=== PATIENT | male | born 1955 | race Caucasian/White ===

== ENCOUNTER 2016-11-03 10:21 | Inpatient (IN) | payer MEDICAID ==
[~2016-11-03] VITALS: Ht 167.6 cm; Wt 68.2 kg
[~2016-11-03 10:21] MED LIST: RISP2 PO; VITAD1000 PO
[2016-11-03] MEDS ORDERED: ZOLPIDEM TARTRATE 10 MG TABLET PO PRN (12:30)
[2016-11-03 12:35] VITALS: BP 119/68
[2016-11-03] MEDS ORDERED: MIRT15 PO (12:55)
[2016-11-03] MEDS ORDERED: RISP1 PO (12:55)
[2016-11-03] MEDS ORDERED: INFLUENZA VIRUS VACCINE QVS 2016-17 (3YR+)/PF 60 MCG/0.5 ML SYRINGE IM ONE (13:00)
[2016-11-03] MEDS: LORazepam 1 MG TABLET PO PRN (13:12)
[2016-11-03 16:02] VITALS: BP 109/69
[2016-11-03] MEDS: MIRTAZAPINE 30 MG TABLET PO SCH (19:58)
[2016-11-03] MEDS ORDERED: RisperiDONE 1 MG TABLET PO SCH (21:00)
[2016-11-04] MEDS: LORazepam 1 MG TABLET PO PRN ×3 (05:48→17:01)
[2016-11-04 07:11] VITALS: BP 107/64
[2016-11-04 08:12] VITALS: BP 109/64
[2016-11-04] MEDS ORDERED: ALBUTEROL SULFATE HFA 90 MCG/PUFF 8 GM INHALER IH PRN (08:15)
[2016-11-04] MEDS ORDERED: LOPERAMIDE HCL 2 MG CAPSULE PO PRN (08:15)
[2016-11-04] MEDS ORDERED: PETROLATUM,WHITE 71 GM JELLY TP PRN (08:15)
[2016-11-04] MEDS ORDERED: ONDANSETRON HCL 4 MG TABLET PO PRN (08:15)
[2016-11-04] MEDS ORDERED: BENZOCAINE/MENTHOL LOZENGE MM PRN (08:15)
[2016-11-04] MEDS ORDERED: MAG HYDROX/AL HYDROX/SIMETH ES 30 ML SUSPENSION UDCUP PO PRN (08:15)
[2016-11-04] MEDS ORDERED: MAGNESIUM HYDROXIDE SUSPENSION 30 ML UDCUP PO PRN (08:15)
[2016-11-04] MEDS ORDERED: CloNIDine HCL 0.1 MG TABLET PO PRN (08:15)
[2016-11-04] MEDS ORDERED: ACETAMINOPHEN 325 MG TABLET PO PRN (08:15)
[2016-11-04] MEDS ORDERED: BACITRACIN 28.4 GM OINTMENT TP PRN (08:15)
[2016-11-04 08:34] LABS: BASOPHILS % (AUTO) 0.4 % (0.0-2.0); EOSINOPHILS % (AUTO) 5.6 % (1.0-6.0); HEMATOCRIT 40.8 % (41-53); LYMPHOCYTES # (AUTO) 2.1 K/uL (1.0-4.8); LYMPHOCYTES % (AUTO) 37.3 % (22.0-44.0); MEAN CORPUSCULAR HEMOGLOBIN 27.7 pg (26.0-34.0); MEAN CORPUSCULAR HGB CONC 31.9 G/dL (31.0-37.0); MEAN CORPUSCULAR VOLUME 87 fL (80-100); MONOCYTES # (AUTO) 0.5 K/uL (0.1-1.0); MONOCYTES % (AUTO) 8.4 % (2.0-9.0); NEUTROPHILS # (AUTO) 2.7 K/uL (1.8-7.7); NEUTROPHILS % (AUTO) 48.3 % (40.0-70.0); PLATELET COUNT (AUTO) 339 K/uL (150-450); RED BLOOD CELL COUNT(AUTO) 4.71 MIL/uL (4.50-5.90); WHITE BLOOD COUNT (AUTO) 5.7 K/uL (4.5-11.0)
[2016-11-04 08:56] LABS: ALANINE AMINOTRANSFERASE 9 U/L (12-78); ALBUMIN 2.9 g/dL (3.4-5.0); ANION GAP 8 mmol/L (8-16); ASPARTATE AMINOTRANSFERASE 13 U/L (15-37); BILIRUBIN,TOTAL 0.3 mg/dL (0.1-1.0); CARBON DIOXIDE 28 mmol/L (22-29); CHLORIDE 106 mmol/L (98-107); CREATININE 0.74 mg/dL (0.60-1.30); GLOMERULAR FILTR. RATE CALC > 60 mL/min (>60); SODIUM SERUM 142 mmol/L (136-145); TOTAL PROTEIN, SERUM 6.4 g/dL (6.4-8.2); UREA NITROGEN, BLOOD 19 mg/dL (7-18)
[2016-11-04 09:41] LABS: APPEARANCE,URINE TURBID (CLEAR); GLUCOSE, URINE (UA) NEGATIVE (NEGATIVE); KETONES,URINE 15 mg/dL (NEGATIVE); LEUKOCYTE ESTERASE ,URINE NEGATIVE (NEGATIVE); OCCULT BLOOD,URINE NEGATIVE (NEGATIVE); PROTEIN,URINE NEGATIVE (NEGATIVE)
[2016-11-04] MEDS: CHOLECALCIFEROL (VIT D3) 1,000 UNITS TABLET PO SCH (09:43)
[2016-11-04] MEDS: NICOTINE 7 MG/24 HOUR PATCH TD SCH (09:43)
[2016-11-04 09:45] LABS: ADD UA MICROSCOPIC YES
[2016-11-04 09:57] LABS: RBC,URINE None Seen /HPF (0-2); SQUAMOUS EPITHELIAL CELL,UR Few /LPF (None Seen); WBC,URINE None Seen /HPF (0-5)
[2016-11-04] MEDS: HYDROCORTISONE 2.5% 30 GM OINTMENT TP SCH ×2 (15:57→17:01)
[2016-11-04 16:00] VITALS: BP 116/66
[2016-11-04] MEDS: HALOPERIDOL 5 MG TABLET PO PRN (17:01)
[2016-11-04] MEDS: MIRTAZAPINE 30 MG TABLET PO SCH (20:55)
[2016-11-04] MEDS: RisperiDONE 2 MG TABLET PO SCH (20:55)
[2016-11-05] MEDS: LORazepam 1 MG TABLET PO PRN ×2 (06:54→12:02)
[2016-11-05 08:26] VITALS: BP 104/66
[2016-11-05] MEDS: HALOPERIDOL 5 MG TABLET PO PRN (08:35)
[2016-11-05] MEDS: NICOTINE 7 MG/24 HOUR PATCH TD SCH (08:35)
[2016-11-05] MEDS: CHOLECALCIFEROL (VIT D3) 1,000 UNITS TABLET PO SCH (08:35)
[2016-11-05] MEDS: HYDROCORTISONE 2.5% 30 GM OINTMENT TP SCH ×2 (08:36→17:27)
[2016-11-05 16:00] VITALS: BP 109/69
[2016-11-05] MEDS: RisperiDONE 2 MG TABLET PO SCH (20:46)
[2016-11-05] MEDS: MIRTAZAPINE 30 MG TABLET PO SCH (20:46)
[2016-11-06] MEDS: LORazepam 1 MG TABLET PO PRN ×2 (06:54→14:35)
[2016-11-06 07:01] VITALS: BP 106/77
[2016-11-06 08:30] VITALS: BP 98/61
[2016-11-06] MEDS: CHOLECALCIFEROL (VIT D3) 1,000 UNITS TABLET PO SCH (09:16)
[2016-11-06] MEDS: HYDROCORTISONE 2.5% 30 GM OINTMENT TP SCH ×2 (09:16→16:42)
[2016-11-06] MEDS: NICOTINE 7 MG/24 HOUR PATCH TD SCH (09:16)
[2016-11-06 14:33] VITALS: BP 103/64
[2016-11-06 16:00] VITALS: BP 115/73
[2016-11-06] MEDS: MIRTAZAPINE 30 MG TABLET PO SCH (19:59)
[2016-11-06] MEDS: RisperiDONE 2 MG TABLET PO SCH (19:59)
[2016-11-07 06:52] VITALS: BP 102/68
[2016-11-07] MEDS: LORazepam 1 MG TABLET PO PRN ×2 (07:00→16:36)
[2016-11-07 08:30] VITALS: BP 93/65
[2016-11-07] MEDS: NICOTINE 7 MG/24 HOUR PATCH TD SCH (08:42)
[2016-11-07] MEDS: CHOLECALCIFEROL (VIT D3) 1,000 UNITS TABLET PO SCH (08:42)
[2016-11-07] MEDS: HYDROCORTISONE 2.5% 30 GM OINTMENT TP SCH ×2 (08:42→17:09)
[2016-11-07 14:13] LABS: HEPATITIS Bs ANTIGEN SCREEN P Negative (Negative); HEPATITIS C AB SCREEN 0.1 s/co ratio (0.0-0.9)
[2016-11-07 16:09] VITALS: BP_SYST 111; BP_DIAS 65; BP_DIAS 71
[2016-11-07] MEDS: HALOPERIDOL 5 MG TABLET PO PRN (16:36)
[2016-11-07] MEDS: RisperiDONE 2 MG TABLET PO SCH (20:26)
[2016-11-07] MEDS: MIRTAZAPINE 30 MG TABLET PO SCH (20:27)
[2016-11-08 06:10] VITALS: BP 115/73
[2016-11-08] MEDS: LORazepam 1 MG TABLET PO PRN ×3 (06:13→16:29)
[2016-11-08 08:41] VITALS: BP 95/68
[2016-11-08] MEDS: NICOTINE 7 MG/24 HOUR PATCH TD SCH (09:11)
[2016-11-08] MEDS: CHOLECALCIFEROL (VIT D3) 1,000 UNITS TABLET PO SCH (09:11)
[2016-11-08] MEDS: HYDROCORTISONE 2.5% 30 GM OINTMENT TP SCH ×2 (09:11→16:29)
[2016-11-08 12:18] VITALS: BP 108/70
[2016-11-08 16:00] VITALS: BP 115/70
[2016-11-08] MEDS: RisperiDONE 2 MG TABLET PO SCH (20:43)
[2016-11-08] MEDS: MIRTAZAPINE 30 MG TABLET PO SCH (20:43)
[2016-11-09 05:04] VITALS: BP 110/65
[2016-11-09] MEDS: LORazepam 1 MG TABLET PO PRN ×3 (06:11→16:10)
[2016-11-09 08:06] VITALS: BP 104/65
[2016-11-09] MEDS: CHOLECALCIFEROL (VIT D3) 1,000 UNITS TABLET PO SCH (08:49)
[2016-11-09] MEDS: NICOTINE 7 MG/24 HOUR PATCH TD SCH (08:50)
[2016-11-09] MEDS: HYDROCORTISONE 2.5% 30 GM OINTMENT TP SCH ×2 (08:50→16:11)
[2016-11-09] MEDS: BusPIRone HCL 5 MG TABLET PO SCH ×2 (13:24→16:10)
[2016-11-09 16:01] VITALS: BP 120/78
[2016-11-09] MEDS: IBUPROFEN 600 MG TABLET PO PRN (16:32)
[2016-11-09] MEDS: RisperiDONE 2 MG TABLET PO SCH (20:22)
[2016-11-09] MEDS: MIRTAZAPINE 30 MG TABLET PO SCH (20:22)
[2016-11-10] MEDS: LORazepam 1 MG TABLET PO PRN ×2 (03:59→16:26)
[2016-11-10 06:43] VITALS: BP 100/60
[2016-11-10 08:30] VITALS: BP 109/60
[2016-11-10] MEDS: BusPIRone HCL 5 MG TABLET PO SCH ×3 (09:02→16:12)
[2016-11-10] MEDS: NICOTINE 7 MG/24 HOUR PATCH TD SCH (09:02)
[2016-11-10] MEDS: CHOLECALCIFEROL (VIT D3) 1,000 UNITS TABLET PO SCH (09:02)
[2016-11-10] MEDS: HALOPERIDOL 5 MG TABLET PO PRN (10:34)
[2016-11-10 16:00] VITALS: BP 126/72
[2016-11-10] MEDS: IBUPROFEN 600 MG TABLET PO PRN (16:54)
[2016-11-10] MEDS: RisperiDONE 2 MG TABLET PO SCH (20:05)
[2016-11-10] MEDS: MIRTAZAPINE 30 MG TABLET PO SCH (20:05)
[2016-11-11 06:32] VITALS: BP 111/70
[2016-11-11] MEDS: LORazepam 1 MG TABLET PO PRN ×2 (06:35→16:27)
[2016-11-11 08:02] VITALS: BP 109/60
[2016-11-11] MEDS: HALOPERIDOL 5 MG TABLET PO PRN (09:43)
[2016-11-11] MEDS: NICOTINE 7 MG/24 HOUR PATCH TD SCH (09:43)
[2016-11-11] MEDS: BusPIRone HCL 5 MG TABLET PO SCH ×3 (09:43→16:16)
[2016-11-11] MEDS: CHOLECALCIFEROL (VIT D3) 1,000 UNITS TABLET PO SCH (09:43)
[2016-11-11 16:00] VITALS: BP 114/71
[2016-11-11] MEDS: MIRTAZAPINE 30 MG TABLET PO SCH (20:04)
[2016-11-11] MEDS: RisperiDONE 2 MG TABLET PO SCH (20:04)
[2016-11-12 05:51] VITALS: BP 103/60
[2016-11-12] MEDS: LORazepam 1 MG TABLET PO PRN (07:35)
[2016-11-12 08:21] VITALS: BP 114/74
[2016-11-12] MEDS: CHOLECALCIFEROL (VIT D3) 1,000 UNITS TABLET PO SCH (08:31)
[2016-11-12] MEDS: NICOTINE 7 MG/24 HOUR PATCH TD SCH (08:32)
[2016-11-12] MEDS: BusPIRone HCL 5 MG TABLET PO SCH (08:32)
[2016-11-12] MEDS ORDERED: BUSP5TAB20 PO (08:50)
[2016-11-12] MEDS ORDERED: MIRT30 PO (08:50)
[2016-11-12] MEDS ORDERED: RISP2 PO (08:50)
[2016-11-12] MEDS ORDERED: VITAD1000 PO (09:34)
== END 2016-11-12 11:50 | disposition home or self-care (01) | DRG 750 ==
LOC: B3A 12:24 → EDSTATUS 12:47 → B2S 11-11 10:23
PROC: 3E0234Z Introduction of Serum, Toxoid and Vaccine into Muscle, Percutaneous Approach (ICD-10-PCS; principal; 2016-11-03)
DX: F25.1 Schizoaffective disorder, depressive type (principal); R45.851 Suicidal ideations; E55.9 Vitamin D deficiency, unspecified; J44.9 Chronic obstructive pulmonary disease, unspecified; F17.210 Nicotine dependence, cigarettes, uncomplicated; D50.9 Iron deficiency anemia, unspecified; I95.1 Orthostatic hypotension; M19.90 Unspecified osteoarthritis, unspecified site; G47.00 Insomnia, unspecified; S61.214A Laceration without foreign body of right ring finger without damage to nail, initial encounter; X58.XXXA Exposure to other specified factors, initial encounter; Y93.89 Activity, other specified; Y92.89 Other specified places as the place of occurrence of the external cause; Y99.8 Other external cause status; Z79.899 Other long term (current) drug therapy; Z59.0 Homelessness; Z91.5 Personal history of self-harm; Z98.890 Other specified postprocedural states; Z23 Encounter for immunization
CPT/HCPCS: 80074; 87086; 90471

== ENCOUNTER 2017-05-28 15:33 | Inpatient (IN) | payer MEDICAID ==
[~2017-05-28] VITALS: Ht 167.6 cm; Wt 70.8 kg
[~2017-05-28 15:33] MED LIST changes: +BUSP5TAB20 PO; +MIRT30 PO
[2017-05-28 19:45] VITALS: BP 115/66
[2017-05-28] MEDS ORDERED: PNEUMOCOCCAL VACCINE POLYVALENT 0.5 ML VIAL [PPSV23] IM ONE (20:30)
[2017-05-28] MEDS: LORazepam 1 MG TABLET PO PRN (21:31)
[2017-05-29 00:35] VITALS: BP 110/74
[2017-05-29] MEDS: ZOLPIDEM TARTRATE 10 MG TABLET PO PRN ×2 (00:53→20:39)
[2017-05-29] MEDS: LORazepam 1 MG TABLET PO PRN ×3 (06:38→16:25)
[2017-05-29] MEDS ORDERED: MAG HYDROX/AL HYDROX/SIMETH ES 30 ML SUSPENSION UDCUP PO PRN (07:45)
[2017-05-29] MEDS ORDERED: LOPERAMIDE HCL 2 MG CAPSULE PO PRN (07:45)
[2017-05-29] MEDS ORDERED: BENZOCAINE/MENTHOL LOZENGE MM PRN (07:45)
[2017-05-29] MEDS ORDERED: PETROLATUM,WHITE 71 GM JELLY TP PRN (07:45)
[2017-05-29] MEDS ORDERED: ALBUTEROL SULFATE HFA 90 MCG/PUFF 8 GM INHALER IH PRN (07:45)
[2017-05-29] MEDS ORDERED: CloNIDine HCL 0.1 MG TABLET PO PRN (07:45)
[2017-05-29] MEDS ORDERED: ACETAMINOPHEN 325 MG TABLET PO PRN (07:45)
[2017-05-29] MEDS ORDERED: ONDANSETRON HCL 4 MG TABLET PO PRN (07:45)
[2017-05-29] MEDS ORDERED: IBUPROFEN 600 MG TABLET PO PRN (07:45)
[2017-05-29] MEDS ORDERED: MAGNESIUM HYDROXIDE SUSPENSION 30 ML UDCUP PO PRN (07:45)
[2017-05-29] MEDS ORDERED: BACITRACIN 28.4 GM OINTMENT TP PRN (07:45)
[2017-05-29] MEDS: HALOPERIDOL 5 MG TABLET PO PRN ×2 (08:22→13:37)
[2017-05-29 08:23] VITALS: BP 125/80
[2017-05-29] MEDS: TraMADol HCL 50 MG TABLET PO PRN (08:23)
[2017-05-29] MEDS: CHOLECALCIFEROL (VIT D3) 1,000 UNITS TABLET PO SCH (08:23)
[2017-05-29 08:28] LABS: BASOPHILS % (AUTO) 0.3 % (0.0-2.0); EOSINOPHILS % (AUTO) 6.4 % (1.0-6.0); HEMATOCRIT 36.5 % (41-53); HEMOGLOBIN 12.2 g/dL (13.5-17.5); LYMPHOCYTES % (AUTO) 30.9 % (22.0-44.0); MEAN CORPUSCULAR HEMOGLOBIN 29.5 pg (26.0-34.0); MEAN CORPUSCULAR HGB CONC 33.3 G/dL (31.0-37.0); MEAN CORPUSCULAR VOLUME 89 fL (80-100); MONOCYTES # (AUTO) 0.6 K/uL (0.1-1.0); MONOCYTES % (AUTO) 9.8 % (2.0-9.0); NEUTROPHILS # (AUTO) 3.3 K/uL (1.8-7.7); NEUTROPHILS % (AUTO) 52.6 % (40.0-70.0); PLATELET COUNT (AUTO) 225 K/uL (150-450); RED BLOOD CELL COUNT(AUTO) 4.12 MIL/uL (4.50-5.90); RED CELL DISTRIBUTION WIDTH 16.2 % (11.5-14.5); WHITE BLOOD COUNT (AUTO) 6.3 K/uL (4.5-11.0)
[2017-05-29 08:50] LABS: ALANINE AMINOTRANSFERASE 13 U/L (12-78); ALBUMIN 3.1 g/dL (3.4-5.0); ANION GAP 6 mmol/L (8-16); ASPARTATE AMINOTRANSFERASE 19 U/L (15-37); BILIRUBIN,TOTAL 0.2 mg/dL (0.1-1.0); CALCIUM, TOTAL 8.7 mg/dL (8.8-10.5); CARBON DIOXIDE 30 mmol/L (22-29); CHLORIDE 106 mmol/L (98-107); CHOL/HDL RATIO 4.7 (4.2-7.3); CREATININE 0.97 mg/dL (0.60-1.30); GLOMERULAR FILTR. RATE CALC > 60 mL/min (>60); POTASSIUM 3.9 mmol/L (3.5-5.1); SODIUM SERUM 142 mmol/L (136-145); THYROID STIMULATING HORMONE 2.26 uIU/mL (0.36-3.74); TOTAL PROTEIN, SERUM 6.5 g/dL (6.4-8.2); UREA NITROGEN, BLOOD 20 mg/dL (7-18)
[2017-05-29 08:52] LABS: HEMOGLOBIN A1C 6.4 % (4.5-6.2)
[2017-05-29 08:57] VITALS: BP 125/80
[2017-05-29] MEDS: RisperiDONE 2 MG TABLET PO SCH (16:25)
[2017-05-29 16:47] VITALS: BP 125/70
[2017-05-30 00:11] VITALS: BP 107/66
[2017-05-30] MEDS: TraMADol HCL 50 MG TABLET PO PRN (04:10)
[2017-05-30] MEDS: LORazepam 1 MG TABLET PO PRN ×3 (04:14→16:29)
[2017-05-30 08:57] VITALS: BP 99/70
[2017-05-30] MEDS: CHOLECALCIFEROL (VIT D3) 1,000 UNITS TABLET PO SCH (09:13)
[2017-05-30] MEDS: RisperiDONE 2 MG TABLET PO SCH ×2 (09:13→16:15)
[2017-05-30 14:27] VITALS: BP 101/70
[2017-05-30 17:38] VITALS: BP 126/75
[2017-05-30] MEDS: ZOLPIDEM TARTRATE 10 MG TABLET PO PRN (21:05)
[2017-05-31 00:49] VITALS: BP 122/79
[2017-05-31] MEDS: TraMADol HCL 50 MG TABLET PO PRN ×2 (00:52→08:34)
[2017-05-31] MEDS: LORazepam 1 MG TABLET PO PRN ×2 (06:16→16:01)
[2017-05-31 08:32] VITALS: BP 117/80
[2017-05-31] MEDS: HALOPERIDOL 5 MG TABLET PO PRN (08:34)
[2017-05-31] MEDS: CHOLECALCIFEROL (VIT D3) 1,000 UNITS TABLET PO SCH (08:34)
[2017-05-31] MEDS: RisperiDONE 2 MG TABLET PO SCH ×2 (08:34→16:01)
[2017-05-31 09:34] VITALS: BP 136/76
[2017-05-31 16:10] VITALS: BP 112/68
[2017-05-31 16:40] VITALS: BP 125/77
[2017-06-01 04:50] VITALS: BP 112/75
[2017-06-01] MEDS: LORazepam 1 MG TABLET PO PRN ×2 (04:54→16:48)
[2017-06-01] MEDS: CHOLECALCIFEROL (VIT D3) 1,000 UNITS TABLET PO SCH (08:19)
[2017-06-01] MEDS: RisperiDONE 2 MG TABLET PO SCH ×2 (08:19→16:48)
[2017-06-01 09:08] VITALS: BP 124/71
[2017-06-01 12:20] VITALS: BP 118/72
[2017-06-01] MEDS: TraMADol HCL 50 MG TABLET PO PRN (12:23)
[2017-06-01 13:20] VITALS: BP 115/69
[2017-06-01 16:15] VITALS: BP 109/77
[2017-06-01] MEDS: HALOPERIDOL 5 MG TABLET PO PRN (16:48)
[2017-06-02 05:38] VITALS: BP 110/80
[2017-06-02] MEDS: LORazepam 1 MG TABLET PO PRN ×3 (05:40→17:58)
[2017-06-02 08:50] VITALS: BP 117/64
[2017-06-02] MEDS: RisperiDONE 2 MG TABLET PO SCH (09:01)
[2017-06-02] MEDS: CHOLECALCIFEROL (VIT D3) 1,000 UNITS TABLET PO SCH (09:01)
[2017-06-02] MEDS: TraMADol HCL 50 MG TABLET PO PRN (09:13)
[2017-06-02 16:52] VITALS: BP 125/70
[2017-06-03 00:11] VITALS: BP 115/68
[2017-06-03 05:35] VITALS: BP 110/72
[2017-06-03] MEDS: LORazepam 1 MG TABLET PO PRN (05:37)
[2017-06-03] MEDS ORDERED: FERROUS SULFATE 325 MG EC TABLET PO SCH (07:00)
[2017-06-03] MEDS: TraMADol HCL 50 MG TABLET PO PRN (07:01)
[2017-06-03 08:18] LABS: HEMATOCRIT 36.9 % (41-53); HEMOGLOBIN 12.4 g/dL (13.5-17.5); MEAN CORPUSCULAR HEMOGLOBIN 29.7 pg (26.0-34.0); MEAN CORPUSCULAR HGB CONC 33.6 G/dL (31.0-37.0); MEAN CORPUSCULAR VOLUME 88 fL (80-100); PLATELET COUNT (AUTO) 254 K/uL (150-450); RED BLOOD CELL COUNT(AUTO) 4.18 MIL/uL (4.50-5.90); RED CELL DISTRIBUTION WIDTH 16.4 % (11.5-14.5); WHITE BLOOD COUNT (AUTO) 7.5 K/uL (4.5-11.0)
[2017-06-03] MEDS: CHOLECALCIFEROL (VIT D3) 1,000 UNITS TABLET PO SCH (08:27)
[2017-06-03 08:31] LABS: ANION GAP 4 mmol/L (8-16); CALCIUM, TOTAL 8.5 mg/dL (8.8-10.5); CARBON DIOXIDE 29 mmol/L (22-29); CHLORIDE 104 mmol/L (98-107); CREATININE 0.86 mg/dL (0.60-1.30); GLOMERULAR FILTR. RATE CALC > 60 mL/min (>60); PHOSPHORUS 3.5 mg/dL (2.5-4.9); POTASSIUM 4.4 mmol/L (3.5-5.1); SODIUM SERUM 137 mmol/L (136-145); UREA NITROGEN, BLOOD 22 mg/dL (7-18)
[2017-06-03 09:00] VITALS: BP 126/61
[2017-06-03] MEDS ORDERED: RISP3TAB13 PO (10:45)
[2017-06-03] MEDS ORDERED: FERR-89 PO (10:45)
[2017-06-03 11:05] LABS: EOSINOPHILS % (MANUAL) 4 % (1-6); LYMPHOCYTES % (MANUAL) 30 % (22-44); TOTAL CELLS COUNTED 100
[2017-06-03] MEDS ORDERED: RisperiDONE 3 MG TABLET PO SCH (17:00)
== END 2017-06-03 12:15 | disposition left against medical advice (07) | DRG 750 ==
LOC: B2S 19:09
PROVIDERS: ADMIT Psychiatry & Neurology Psychiatry; ATTEND Psychiatry & Neurology Psychiatry
DX: F25.0 Schizoaffective disorder, bipolar type (principal); E83.51 Hypocalcemia; F19.20 Other psychoactive substance dependence, uncomplicated; F17.200 Nicotine dependence, unspecified, uncomplicated; F22 Delusional disorders; F41.9 Anxiety disorder, unspecified; D64.9 Anemia, unspecified; G47.00 Insomnia, unspecified; Z53.21 Procedure and treatment not carried out due to patient leaving prior to being seen by health care provider; G89.29 Other chronic pain; J44.9 Chronic obstructive pulmonary disease, unspecified; M19.90 Unspecified osteoarthritis, unspecified site; M54.9 Dorsalgia, unspecified; Z59.0 Homelessness; Z28.21 Immunization not carried out because of patient refusal; Z71.6 Tobacco abuse counseling; Z79.899 Other long term (current) drug therapy
CPT/HCPCS: 80307; 83036; 83735; 84100; 84439; 84443; 85007; 87081; J3535

== ENCOUNTER 2018-03-26 13:00 | Inpatient (IN) | payer MEDICAID ==
[~2018-03-26] VITALS: Ht 167.6 cm; Wt 74.8 kg
[~2018-03-26 13:00] MED LIST changes: -BUSP5TAB20 PO; +FERR-89 PO; -MIRT30 PO; -RISP2 PO; +RISP3TAB13 PO
[2018-03-26 13:34] VITALS: BP 121/82
[2018-03-26] MEDS ORDERED: ZOLPIDEM TARTRATE 10 MG TABLET PO PRN (14:15)
[2018-03-26 14:45] VITALS: BP 127/81
[2018-03-26] MEDS: HALOPERIDOL 5 MG TABLET PO PRN (16:24)
[2018-03-26] MEDS: LORazepam 2 MG TABLET PO PRN (16:24)
[2018-03-26 16:26] VITALS: BP 134/75
[2018-03-27 04:01] VITALS: BP 122/70
[2018-03-27] MEDS: LORazepam 2 MG TABLET PO PRN ×2 (06:44→16:42)
[2018-03-27] MEDS: HALOPERIDOL 5 MG TABLET PO PRN ×2 (06:44→16:42)
[2018-03-27 07:32] LABS: BASOPHILS % (AUTO) 0.3 % (0.0-2.0); EOSINOPHILS % (AUTO) 3.7 % (1.0-6.0); HEMATOCRIT 41.4 % (41-53); HEMOGLOBIN 13.7 g/dL (13.5-17.5); MEAN CORPUSCULAR HGB CONC 33.2 G/dL (31.0-37.0); MEAN CORPUSCULAR VOLUME 87 fL (80-100); MONOCYTES # (AUTO) 0.4 K/uL (0.1-1.0); MONOCYTES % (AUTO) 7.5 % (2.0-9.0); NEUTROPHILS # (AUTO) 3.2 K/uL (1.8-7.7); NEUTROPHILS % (AUTO) 54.5 % (40.0-70.0); PLATELET COUNT (AUTO) 186 K/uL (150-450); RED BLOOD CELL COUNT(AUTO) 4.74 MIL/uL (4.50-5.90); RED CELL DISTRIBUTION WIDTH 14.6 % (11.5-14.5)
[2018-03-27 08:03] LABS: ALANINE AMINOTRANSFERASE 11 U/L (12-78); ALBUMIN 3.1 g/dL (3.4-5.0); ALKALINE PHOSPHATASE 52 U/L (46-116); ANION GAP 4 mmol/L (8-16); ASPARTATE AMINOTRANSFERASE 17 U/L (15-37); BILIRUBIN,TOTAL 0.4 mg/dL (0.1-1.0); CALCIUM, TOTAL 8.4 mg/dL (8.8-10.5); CARBON DIOXIDE 30 mmol/L (22-29); CHLORIDE 107 mmol/L (98-107); CHOL/HDL RATIO 3.3 (4.2-7.3); CHOLESTEROL 144 mg/dL (131-200); CREATININE 0.88 mg/dL (0.60-1.30); FREE T4 (FREE THYROXINE) 0.84 ng/dL (0.76-1.46); GLOMERULAR FILTR. RATE CALC > 60 mL/min (>60); GLUCOSE,RANDOM 101 mg/dL (70-110); HDL CHOLESTEROL 43 mg/dL (40-60); LDL CHOL (CALC.) 89 mg/dL (0-130); POTASSIUM 4.2 mmol/L (3.5-5.1); SODIUM SERUM 141 mmol/L (136-145); TOTAL PROTEIN, SERUM 6.2 g/dL (6.4-8.2); TRIGLYCERIDES 62 mg/dL (15-150); UREA NITROGEN, BLOOD 19 mg/dL (7-18)
[2018-03-27 08:04] VITALS: BP 108/62
[2018-03-27] MEDS ORDERED: LOPERAMIDE HCL 2 MG CAPSULE PO PRN (12:30)
[2018-03-27] MEDS ORDERED: BACITRACIN 28.4 GM OINTMENT TP PRN (12:30)
[2018-03-27] MEDS ORDERED: IBUPROFEN 600 MG TABLET PO PRN (12:30)
[2018-03-27] MEDS ORDERED: ONDANSETRON HCL 4 MG TABLET PO PRN (12:30)
[2018-03-27] MEDS ORDERED: ALBUTEROL SULFATE HFA 90 MCG/PUFF 8 GM INHALER IH PRN (12:30)
[2018-03-27] MEDS ORDERED: PETROLATUM,WHITE 71 GM JELLY TP PRN (12:30)
[2018-03-27] MEDS ORDERED: MAGNESIUM HYDROXIDE SUSPENSION 30 ML UDCUP PO PRN (12:30)
[2018-03-27] MEDS ORDERED: ACETAMINOPHEN 325 MG TABLET PO PRN (12:30)
[2018-03-27] MEDS ORDERED: MAG HYDROX/AL HYDROX/SIMETH ES 30 ML SUSPENSION UDCUP PO PRN (12:30)
[2018-03-27] MEDS ORDERED: CloNIDine HCL 0.1 MG TABLET PO PRN (12:30)
[2018-03-27] MEDS ORDERED: BENZOCAINE/MENTHOL LOZENGE MM PRN (12:30)
[2018-03-27 16:04] VITALS: BP 111/69
[2018-03-27] MEDS: RisperiDONE 3 MG TABLET PO SCH (20:47)
[2018-03-27] MEDS ORDERED: RisperiDONE 2 MG TABLET PO SCH (21:00)
[2018-03-28 03:07] VITALS: BP 118/72
[2018-03-28 08:02] VITALS: BP 105/64
[2018-03-28] MEDS: CHOLECALCIFEROL (VIT D3) 1,000 UNITS TABLET PO SCH (08:20)
[2018-03-28] MEDS: RisperiDONE 3 MG TABLET PO SCH ×2 (08:20→20:43)
[2018-03-28] MEDS: LORazepam 2 MG TABLET PO PRN ×2 (08:21→14:28)
[2018-03-28 14:42] VITALS: BP 95/60
[2018-03-28 16:03] VITALS: BP 111/64
[2018-03-29 00:06] VITALS: BP 102/61
[2018-03-29] MEDS: LORazepam 2 MG TABLET PO PRN ×3 (06:39→18:01)
[2018-03-29 08:04] VITALS: BP 110/65
[2018-03-29] MEDS: CHOLECALCIFEROL (VIT D3) 1,000 UNITS TABLET PO SCH (08:24)
[2018-03-29] MEDS: RisperiDONE 3 MG TABLET PO SCH ×2 (08:24→20:17)
[2018-03-29 16:26] VITALS: BP 130/70
[2018-03-29] MEDS: HALOPERIDOL 5 MG TABLET PO PRN (16:36)
[2018-03-30 00:32] VITALS: BP 104/66
[2018-03-30] MEDS: LORazepam 2 MG TABLET PO PRN (06:58)
[2018-03-30 08:02] VITALS: BP 106/62
[2018-03-30] MEDS: CHOLECALCIFEROL (VIT D3) 1,000 UNITS TABLET PO SCH (08:23)
[2018-03-30] MEDS: RisperiDONE 3 MG TABLET PO SCH (08:23)
[2018-03-30] MEDS ORDERED: RISP3 PO ×2 (11:42→13:13)
[2018-03-30 16:03] VITALS: BP 102/65
== END 2018-03-30 15:00 | disposition home or self-care (01) | DRG 750 ==
LOC: B3A 16:00
DX: F25.1 Schizoaffective disorder, depressive type (principal); Z59.0 Homelessness; R45.851 Suicidal ideations; F15.90 Other stimulant use, unspecified, uncomplicated; F41.9 Anxiety disorder, unspecified; M19.90 Unspecified osteoarthritis, unspecified site; K21.9 Gastro-esophageal reflux disease without esophagitis; J44.9 Chronic obstructive pulmonary disease, unspecified; G47.00 Insomnia, unspecified; E55.9 Vitamin D deficiency, unspecified; F17.200 Nicotine dependence, unspecified, uncomplicated; Z79.899 Other long term (current) drug therapy
CPT/HCPCS: 82306; 84436; 84439

== ENCOUNTER 2019-12-20 23:11 | Inpatient (IN) | payer MEDICARE, MEDICAID ==
[~2019-12-20] VITALS: Ht 165.1 cm; Wt 97.1 kg
[~2019-12-20 23:11] MED LIST changes: +CHOL100018 PO; -FERR-89 PO; +RISP3 PO; -RISP3TAB13 PO; -VITAD1000 PO
[2019-12-20 23:40] VITALS: BP 112/76
[2019-12-21] MEDS ORDERED: ZOLPIDEM TARTRATE 10 MG TABLET PO PRN (00:30)
[2019-12-21] MEDS ORDERED: HALOPERIDOL 5 MG TABLET PO PRN (00:30)
[2019-12-21] MEDS: LORazepam 2 MG TABLET PO PRN ×3 (00:45→20:13)
[2019-12-21 01:23] VITALS: BP 107/73
[2019-12-21 08:43] VITALS: BP 116/79
[2019-12-21] MEDS ORDERED: ALBUTEROL SULFATE HFA 90 MCG/PUFF 8 GM INHALER IH PRN (09:00)
[2019-12-21] MEDS ORDERED: PETROLATUM,WHITE 28 GM JELLY TP PRN (09:00)
[2019-12-21] MEDS ORDERED: MAG HYDROX/AL HYDROX/SIMETH ES 30 ML SUSPENSION UDCUP PO PRN (09:00)
[2019-12-21] MEDS ORDERED: CloNIDine HCL 0.1 MG TABLET PO PRN (09:00)
[2019-12-21] MEDS ORDERED: ONDANSETRON HCL 4 MG TABLET PO PRN (09:00)
[2019-12-21] MEDS ORDERED: BENZOCAINE/MENTHOL LOZENGE MM PRN (09:00)
[2019-12-21] MEDS ORDERED: BACITRACIN 28.4 GM OINTMENT TP PRN (09:00)
[2019-12-21] MEDS ORDERED: LOPERAMIDE HCL 2 MG CAPSULE PO PRN (09:00)
[2019-12-21] MEDS ORDERED: MAGNESIUM HYDROXIDE SUSPENSION 30 ML UDCUP PO PRN (09:00)
[2019-12-21] MEDS: DOCUSATE SODIUM 100 MG CAPSULE PO SCH (09:17)
[2019-12-21] MEDS: OMEPRAZOLE 20 MG CAPSULE PO SCH (09:17)
[2019-12-21] MEDS: ACETAMINOPHEN 325 MG TABLET PO PRN (09:17)
[2019-12-21] MEDS ORDERED: MECLIZINE HCL 25 MG TABLET PO PRN (10:15)
[2019-12-21 12:30] VITALS: BP 115/67
[2019-12-21] MEDS: LOSARTAN POTASSIUM 50 MG TABLET PO SCH (12:31)
[2019-12-21] MEDS: ESCITALOPRAM OXALATE 10 MG TABLET PO SCH (14:23)
[2019-12-21 16:08] VITALS: BP 109/79
[2019-12-21] MEDS: IBUPROFEN 600 MG TABLET PO PRN (17:52)
[2019-12-21] MEDS: OLANZapine 5 MG TABLET PO SCH (20:13)
[2019-12-22 06:24] VITALS: BP 119/82
[2019-12-22] MEDS: OMEPRAZOLE 20 MG CAPSULE PO SCH (08:08)
[2019-12-22] MEDS: DOCUSATE SODIUM 100 MG CAPSULE PO SCH (08:08)
[2019-12-22] MEDS: LOSARTAN POTASSIUM 50 MG TABLET PO SCH (08:08)
[2019-12-22] MEDS: ESCITALOPRAM OXALATE 10 MG TABLET PO SCH (08:08)
[2019-12-22 08:09] VITALS: BP 115/79
[2019-12-22] MEDS: ACETAMINOPHEN 325 MG TABLET PO PRN ×3 (08:09→18:33)
[2019-12-22 08:45] LABS: BASOPHILS % (AUTO) 0.2 % (0.0-2.0); EOSINOPHILS % (AUTO) 6.1 % (1.0-6.0); HEMATOCRIT 41.3 % (41-53); HEMOGLOBIN 13.8 g/dL (13.5-17.5); LYMPHOCYTES # (AUTO) 1.9 K/uL (1.0-4.8); LYMPHOCYTES % (AUTO) 33.6 % (22.0-44.0); MEAN CORPUSCULAR HEMOGLOBIN 29.3 pg (26.0-34.0); MEAN CORPUSCULAR HGB CONC 33.3 G/dL (31.0-37.0); MEAN CORPUSCULAR VOLUME 88 fL (80-100); MONOCYTES # (AUTO) 0.6 K/uL (0.1-1.0); NEUTROPHILS # (AUTO) 2.8 K/uL (1.8-7.7); NEUTROPHILS % (AUTO) 49.1 % (40.0-70.0); PLATELET COUNT (AUTO) 211 K/uL (150-450); RED CELL DISTRIBUTION WIDTH 15.1 % (11.5-14.5)
[2019-12-22 09:23] LABS: ALANINE AMINOTRANSFERASE 18 U/L (12-78); ALBUMIN 3.1 g/dL (3.4-5.0); ALKALINE PHOSPHATASE 50 U/L (46-116); ANION GAP 8 mmol/L (8-16); ASPARTATE AMINOTRANSFERASE 23 U/L (15-37); BILIRUBIN,TOTAL 0.2 mg/dL (0.1-1.0); CARBON DIOXIDE 26 mmol/L (22-29); CHLORIDE 107 mmol/L (98-107); CHOL/HDL RATIO 5.8 (4.2-7.3); CHOLESTEROL 187 mg/dL (131-200); CREATININE 0.81 mg/dL (0.60-1.30); GLOMERULAR FILTR. RATE CALC > 60 mL/min (>60); GLUCOSE,RANDOM 96 mg/dL (70-110); HDL CHOLESTEROL 32 mg/dL (40-60); LDL CHOL (CALC.) 133 mg/dL (0-130); POTASSIUM 4.1 mmol/L (3.5-5.1); SODIUM SERUM 141 mmol/L (136-145); THYROID STIMULATING HORMONE 1.86 uIU/mL (0.36-3.74); TOTAL PROTEIN, SERUM 6.5 g/dL (6.4-8.2); TRIGLYCERIDES 110 mg/dL (15-150); UREA NITROGEN, BLOOD 18 mg/dL (7-18)
[2019-12-22] MEDS: LORazepam 2 MG TABLET PO PRN ×2 (09:29→20:15)
[2019-12-22 17:27] VITALS: BP 134/69
[2019-12-22] MEDS: OLANZapine 5 MG TABLET PO SCH (20:04)
[2019-12-23 01:23] VITALS: BP 104/62
[2019-12-23] MEDS: IBUPROFEN 600 MG TABLET PO PRN (06:32)
[2019-12-23 08:01] VITALS: BP 110/72
[2019-12-23] MEDS: LOSARTAN POTASSIUM 50 MG TABLET PO SCH (08:33)
[2019-12-23] MEDS: OMEPRAZOLE 20 MG CAPSULE PO SCH (08:33)
[2019-12-23] MEDS: DOCUSATE SODIUM 100 MG CAPSULE PO SCH (08:33)
[2019-12-23] MEDS: ESCITALOPRAM OXALATE 10 MG TABLET PO SCH (08:33)
[2019-12-23] MEDS ORDERED: ESCI10TA PO (08:59)
[2019-12-23] MEDS ORDERED: OLAN5TAB2 PO (08:59)
[2019-12-23] MEDS ORDERED: LOSA50TA37 PO (08:59)
== END 2019-12-23 11:40 | disposition home or self-care (01) | DRG 750 ==
LOC: B2S 12-21 00:29
PROVIDERS: ADMIT Psychiatry & Neurology Psychiatry; ATTEND Psychiatry & Neurology Psychiatry
DX: F25.9 Schizoaffective disorder, unspecified (principal); R45.851 Suicidal ideations; J44.9 Chronic obstructive pulmonary disease, unspecified; E55.9 Vitamin D deficiency, unspecified; F17.200 Nicotine dependence, unspecified, uncomplicated; F41.9 Anxiety disorder, unspecified; G47.00 Insomnia, unspecified; M19.90 Unspecified osteoarthritis, unspecified site; K21.9 Gastro-esophageal reflux disease without esophagitis
CPT/HCPCS: 83036; 84436; 84443; 86592

== ENCOUNTER 2022-05-03 22:19 | Emergency (ER) | payer MEDICARE, OTHER ==
[~2022-05-03] VITALS: Ht 165.1 cm; Wt 100.6 kg
[~2022-05-03 22:19] MED LIST changes: -CHOL100018 PO; +ESCI-8 PO; +LOSA-382 PO; +OLAN5TAB52 PO; -RISP3 PO
[2022-05-03] MEDS ORDERED: LOSA-381 PO (22:49)
[2022-05-03] MEDS ORDERED: PROP10TA73 PO (22:49)
[2022-05-03] MEDS ORDERED: LORA-999 PO (22:49)
[2022-05-03 23:22] LABS: BASOPHILS % (AUTO) 0.2 % (0.0-2.0); HEMATOCRIT 35.2 % (41-53); HEMOGLOBIN 11.5 g/dL (13.5-17.5); LYMPHOCYTES # (AUTO) 1.6 K/uL (1.0-4.8); LYMPHOCYTES % (AUTO) 28.3 % (22.0-44.0); MEAN CORPUSCULAR HEMOGLOBIN 29.1 pg (26.0-34.0); MEAN CORPUSCULAR HGB CONC 32.6 G/dL (31.0-37.0); MEAN CORPUSCULAR VOLUME 89 fL (80-100); MONOCYTES # (AUTO) 0.5 K/uL (0.1-1.0); MONOCYTES % (AUTO) 8.2 % (2.0-9.0); NEUTROPHILS # (AUTO) 3.1 K/uL (1.8-7.7); NEUTROPHILS % (AUTO) 55.3 % (40.0-70.0); PLATELET COUNT (AUTO) 170 K/uL (150-450); RED BLOOD CELL COUNT(AUTO) 3.95 MIL/uL (4.50-5.90); RED CELL DISTRIBUTION WIDTH 16.7 % (11.5-14.5)
[2022-05-03 23:31] LABS: ANION GAP 4 mmol/L (8-16); CALCIUM, TOTAL 8.5 mg/dL (8.8-10.5); CARBON DIOXIDE 28 mmol/L (22-29); CHLORIDE 108 mmol/L (98-107); CREATININE 0.77 mg/dL (0.60-1.30); GLUCOSE,RANDOM 127 mg/dL (70-110); POTASSIUM 3.7 mmol/L (3.5-5.1); SODIUM SERUM 140 mmol/L (136-145); UREA NITROGEN, BLOOD 11 mg/dL (7-18)
[2022-05-03 23:37] LABS: PROTHROMBIN TIME 10.5 SEC (9.4-11.6)
[2022-05-03 23:39] LABS: ALANINE AMINOTRANSFERASE 15 U/L (12-78); ALBUMIN 2.6 g/dL (3.4-5.0); ALKALINE PHOSPHATASE 50 U/L (46-116); ASPARTATE AMINOTRANSFERASE 29 U/L (15-37); BILIRUBIN,TOTAL 0.1 mg/dL (0.1-1.0); CREATINE KINASE, TOTAL ONLY 158 U/L (39-308); TOTAL PROTEIN, SERUM 5.7 g/dL (6.4-8.2)
[2022-05-03 23:41] LABS: B-TYPE NATRIURETIC PEPTIDE 44 pg/mL (0-100); GLOMERULAR FILTR. RATE CALC > 60 mL/min (>60)
[2022-05-04 02:00] VITALS: BP 125/74
== END 2022-05-04 02:10 | disposition home or self-care (01) ==
LOC: MERGE 22:21 → EMS 22:21
DX: R20.2 Paresthesia of skin (principal); F41.9 Anxiety disorder, unspecified; I10 Essential (primary) hypertension; Z87.19 Personal history of other diseases of the digestive system; Z86.69 Personal history of other diseases of the nervous system and sense organs; Z91.012 Allergy to eggs; Z88.8 Allergy status to other drugs, medicaments and biological substances; Z91.018 Allergy to other foods; Z87.898 Personal history of other specified conditions
CPT/HCPCS: 71045; 80053; 82550; 83880; 84484; 85025; 85610; 85730; 93005; 99285

== ENCOUNTER 2022-11-21 09:59 | Emergency (ER) | payer MEDICARE, OTHER ==
[~2022-11-21] VITALS: Ht 165.1 cm; Wt 91.5 kg
[~2022-11-21 09:59] MED LIST changes: +LORA-999 PO; +PROP10TA73 PO
[2022-11-21 10:19] VITALS: BP 136/80
[2022-11-21] MEDS ORDERED: TraMADol HCL 50 MG TABLET PO ONE (10:30)
== END 2022-11-21 10:43 | disposition home or self-care (01) ==
LOC: EMS 09:59
DX: S70.12XA Contusion of left thigh, initial encounter (principal); G89.29 Other chronic pain; M54.32 Sciatica, left side; M19.90 Unspecified osteoarthritis, unspecified site; F41.9 Anxiety disorder, unspecified; I10 Essential (primary) hypertension; Z98.890 Other specified postprocedural states; Z91.013 Allergy to seafood; Z91.012 Allergy to eggs; Z91.018 Allergy to other foods; W31.89XA Contact with other specified machinery, initial encounter; Y93.89 Activity, other specified; Y92.89 Other specified places as the place of occurrence of the external cause; Y99.8 Other external cause status
CPT/HCPCS: 99283

== ENCOUNTER 2023-08-28 07:27 | Emergency (ER) | payer MEDICARE, OTHER ==
[~2023-08-28] VITALS: Ht 165.1 cm; Wt 90.9 kg
[~2023-08-28 07:27] MED LIST changes: +ASPI81 PO; +ATOR40TA71 PO; +BACL10TA PO; +BUSP10TA23 PO; +QUET100T34 PO; +QUET300T19 PO; +TRAZ-252 PO
[2023-08-28 08:34] LABS: BASOPHILS % (AUTO) 0.1 % (0.0-2.0); EOSINOPHILS % (AUTO) 2.6 % (1.0-6.0); HEMATOCRIT 37.7 % (41-53); HEMOGLOBIN 12.9 g/dL (13.5-17.5); LYMPHOCYTES # (AUTO) 1.8 K/uL (1.0-4.8); LYMPHOCYTES % (AUTO) 22.9 % (22.0-44.0); MEAN CORPUSCULAR HEMOGLOBIN 30.3 pg (26.0-34.0); MEAN CORPUSCULAR HGB CONC 34.3 G/dL (31.0-37.0); MEAN CORPUSCULAR VOLUME 88 fL (80-100); MONOCYTES # (AUTO) 0.7 K/uL (0.1-1.0); MONOCYTES % (AUTO) 8.3 % (2.0-9.0); NEUTROPHILS # (AUTO) 5.2 K/uL (1.8-7.7); NEUTROPHILS % (AUTO) 66.1 % (40.0-70.0); PLATELET COUNT (AUTO) 186 K/uL (150-450); RED BLOOD CELL COUNT(AUTO) 4.27 MIL/uL (4.50-5.90); RED CELL DISTRIBUTION WIDTH 15.2 % (11.5-14.5); WHITE BLOOD COUNT (AUTO) 7.9 K/uL (4.5-11.0)
[2023-08-28 08:47] LABS: CREATININE 1.2 mg/dL (0.60-1.30); POTASSIUM 4.1 mmol/L (3.5-5.1)
[2023-08-28 08:55] LABS: ALBUMIN 3.5 g/dL (3.4-5.0); BILIRUBIN,TOTAL 0.3 mg/dL (0.1-1.0); TOTAL PROTEIN, SERUM 6.9 g/dL (6.4-8.2)
[2023-08-28] MEDS ORDERED: BUSP10TA23 PO (08:57)
[2023-08-28] MEDS ORDERED: QUET100T PO (08:57)
[2023-08-28] MEDS ORDERED: QUET25TA PO (08:57)
[2023-08-28] MEDS ORDERED: BACL10TA PO (08:57)
[2023-08-28 09:00] LABS: TROPONIN I-HIGH SENSITIVITY 8 ng/L (<76)
[2023-08-28] MEDS ORDERED: ESCI-8 PO (09:03)
[2023-08-28] MEDS ORDERED: TRAZ-252 PO (09:03)
[2023-08-28] MEDS ORDERED: SENN-376 PO (09:03)
[2023-08-28] MEDS ORDERED: CLON-592 PO (09:03)
[2023-08-28] MEDS ORDERED: ATOR40TA28 PO (09:03)
[2023-08-28] MEDS ORDERED: MECLIZINE HCL 25 MG TABLET PO ONE (09:30)
[2023-08-28 09:37] VITALS: BP 163/92; PULSE 89; RESP 16; TEMP 98.3
== END 2023-08-28 09:30 | disposition left against medical advice (07) ==
LOC: EMS 07:48
DX: R42 Dizziness and giddiness (principal); I10 Essential (primary) hypertension; F41.9 Anxiety disorder, unspecified; K21.9 Gastro-esophageal reflux disease without esophagitis; Z91.018 Allergy to other foods; Z91.013 Allergy to seafood; Z91.012 Allergy to eggs
CPT/HCPCS: 80053; 84484; 85025; 93005; 99284